=== PATIENT | female | born 1940 | race Caucasian/White ===

== ENCOUNTER → 2017-04-03 | Outpatient (CLI) | payer OTHER ==
[~2017-04-03] MED LIST: ACID CONTROL150 M1 PO; ACTOS PO; ALAVERT10 MG PO; ALBUTEROL0.63 MG/3 INH; ALBUTEROL17 GM INH; ALPRAZOLAM PO; ASPIRIN PO; ASPIRIN81 M2 PO; ASPIRINEC PO; ATENOLOL PO; ATENOLOL50 MG PO; CATAPRES0.1 MG PO; CLARITIN10 M2 PO; CLONIDINE HCL0.1 MG PO; CO Q-10 100 MG1 EACH PO; COQ-1010 MG PO; CRESTOR5 MG PO; DARVOCET-N 1001 TAB PO; DELTASONE20 MG PO; DULOXETINE HCL60 MG PO; EFFIENT10 MG PO; FISH OIL 1,0001 CAP PO; GAS RELIEF125 M1 PO; GLUCOPHAGE XR500 MG PO; GLUCOTROL PO; HCTZ PO; HUMALOG MIX 75/10 ML SUBQ; HUMALOG100 U/M2 SUBQ; HUMALOG100 U/ML SUBQ; HYDROCODON-ACE1 EAC1 PO; HYDROCODON-ACE1 EAC5 PO; HYDROMET SYRUP480 ML PO; IMDUR PO; IRON PO; ISORDIL40 MG PO; K-DUR10 MEQ PO; KCL PO; LANTUS100 U/ML SUBQ; LANTUS100 UNITS/ SUBQ; LASIX PO; LEVAQUIN PO; LEVEMIR SQ; LEVEMIR100 UNITS/ SUBQ; LIPITOR PO; LISINOPRIL PO; MAG-OXIDE400 MG PO; MOBIC PO; MONTELUKAST SOD10 MG PO; MUCINEX DM1 TAB.SR . PO; MUCINEX PO; NEURONTIN300 MG PO; NEXIUM PO; NITROGYLCERIN SUBLINGUAL; NORCO 10-325 TA1 TAB PO; NORVASC PO; NOVOLOG100 U/ML SUBQ; PLAVIX PO; PROTONIX PO; SINGULAIR PO; VIT E PO; VITAMIN D 4001 UDTAB PO; XANAX0.5 M1 PO; ZANTAC150 M1 PO; ZANTAC150 MG PO; ZESTRIL40 MG PO; ZITHROMAX1 G/PKT PO; ZOLOFT PO; ZOLPIDEM TARTRAT5 MG PO
--- NOTE | ~2017-04-03 | CR169 ---
[facility]. [facility] A Service of [facility] & [facility] RADIOLOGY TEXT RESULTS PATIENT: JAMIR ALMANZAR LOCATION: 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 ROOM: STUDY DESCRIPTION: CR Knee 2 Views Lt Attending Physician: Jailyn Duarte A.P.R.N. Referring Physician: Jailyn Duarte A.P.R.N. Ordering Physician: Jailyn Duarte A.P.R.N. Primary Care Physician: Nina Galicia M.D. MEDICAL IMAGING REPORT This report is preliminary unless electronic signature is present. EXAM Left knee 2 views 04/03/2017. HISTORY Left knee pain status post fall, 04/03/2017; abrasion, anterior aspect of left knee. FINDINGS 2 views of the left knee demonstrate no fracture. There is mild degenerative narrowing of the medial and lateral compartments of the knee. The bones are normally mineralized. There is no joint effusion. IMPRESSION Very minimal degenerative change, left knee. No acute abnormality. Dictated by... Fabio Aly M.D. THIS IS AN ELECTRONICALLY VERIFIED REPORT Fabio Aly M.D. at 04/05/2017 7:27 AM Bryant TD: 04/04/2017 12:28 JOB #: [id number] MEDICAL IMAGING REPORT Page 1 of 1
--- NOTE | ~2017-04-03 | CR170 ---
[facility]. 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 Referring Physician: Jailyn Duarte A.P.R.N. Ordering Physician: Jailyn Duarte A.P.R.N. Primary Care Physician: Nina Galicia M.D. MEDICAL IMAGING REPORT This report is preliminary unless electronic signature is present. EXAM Right knee, 2 views, 04/03/2017. HISTORY Right knee pain status post fall, 04/03/2017. FINDINGS 2 views of the right knee demonstrate no fracture. There is degenerative narrowing of the medial and lateral compartments of the knee and the patellofemoral joint. Osteophytes extend off the lateral compartment of the knee and along the posterior aspect of the patella. There may be a small joint effusion. IMPRESSION Degenerative change about the right knee. No evidence of fracture. Dictated by... Fabio Aly M.D. THIS IS AN ELECTRONICALLY VERIFIED REPORT Fabio Aly M.D. at 04/05/2017 7:27 AM GREGORY/taniya TD: 04/04/2017 12:32 JOB #: [id number] MEDICAL IMAGING REPORT Page 1 of 1
--- NOTE | ~2017-04-03 | CR230 ---
[facility] A Service 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 Referring Physician: Jailyn Duarte A.P.R.N. Ordering Physician: Jailyn Duarte A.P.R.N. Primary Care Physician: Nina Galicia M.D. MEDICAL IMAGING REPORT This report is preliminary unless electronic signature is present. EXAM Right shoulder. HISTORY Chronic shoulder pain for 2 years, worse after falling this morning. TECHNIQUE 3 views of the shoulder were obtained. COMPARISON Compared with 02/18/2015. FINDINGS Hypertrophic degenerative changes are seen at the acromioclavicular joint. Osteophytes are also seen at the glenohumeral joint, and there is faint calcification of the distal supraspinatus tendon consistent with chronic calcific tendinitis. There is no evidence of fracture, subluxation, or dislocation. No acute bony abnormalities are seen. Interstitial markings are prominent in both lungs, most prominent in the right upper lung field. This is a new finding since a previous chest CT in 2016. It is incompletely imaged. IMPRESSION 1. 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 No acute bony abnormalities are seen. 2. New lung infiltrates in the upper lung herrera when compared to the previous examination, which was a chest CT in 2016. Dictated by... Wilfredo Summers M.D. [facility] A Service of [facility] RADIOLOGY TEXT RESULTS PATIENT: JAMIR ALMANZAR LOCATION: [facility] : 39 UNIT #: [id number] AGE: [address]: Jailyn Duarte SEX: F ORDER DR: THIS IS AN ELECTRONICALLY VERIFIED REPORT Wilfredo Summers M.D. at 04/06/2017 7:02 AM Matilde TD: 04/04/2017 19:13 JOB #: [id number] MEDICAL IMAGING REPORT Page 1 of 1
--- NOTE | ~2017-04-03 | CR142 ---
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 Referring Physician: Jailyn Duarte A.P.R.N. Ordering Physician: Jailyn Duarte A.P.R.N. Primary Care Physician: Nina Galicia M.D. MEDICAL IMAGING REPORT This report is preliminary unless electronic signature is present. EXAM Right hand, 3 views, 04/03/2017. HISTORY Right hand pain status post fall, 04/03/2017, with third finger edema. FINDINGS 3 views of the right hand demonstrate no fracture. There is degenerative change with narrowing of the interphalangeal joints and central erosions involving the second through fifth distal interphalangeal joints with abundant marginal osteophytes about the second through fifth distal interphalangeal joints and the fourth and fifth proximal interphalangeal joints, characteristic of osteoarthritis. Degenerative subchondral cyst formation involving the second through fifth distal interphalangeal joints. Minimal osteophytic spurring involving the scaphoid and the trapezium. Soft tissue swelling is seen about the phalanges, primarily the third phalanx, but no foreign body is seen. IMPRESSION Findings characteristic of osteoarthritis. No evidence of fracture. Dictated by... Fabio Aly M.D. THIS IS AN ELECTRONICALLY VERIFIED REPORT Fabio Aly M.D. at 04/05/2017 7:27 AM GREGORY/taniya TD: 04/04/2017 12:29 JOB #: [id number] [facility] A Service of [facility] RADIOLOGY TEXT RESULTS PATIENT: JAMIR ALMANZAR LOCATION: [facility] : 39 UNIT #: [id number] AGE: [address]: Jailyn Duarte SEX: F ORDER DR: MEDICAL IMAGING REPORT Page 1 of 1
--- NOTE | ~2017-04-03 | CR229 ---
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 Referring Physician: Jailyn Duarte A.P.R.N. Ordering Physician: Jailyn Duarte A.P.R.N. Primary Care Physician: Nina Galicia M.D. MEDICAL IMAGING REPORT This report is preliminary unless electronic signature is present. EXAM Left shoulder. HISTORY Chronic left shoulder pain for the past several years, worse after falling this morning. TECHNIQUE Three views of the left shoulder were obtained. FINDINGS Three views of the left shoulder show a chronic humeral neck fracture. There is a small osteochondral fragment in the inferior aspect of the shoulder joint. It is difficult to ascertain whether there are any acute fracture fragments given the deformity from the previous injury. If there is persistent clinical concern for an acute left proximal humeral fracture, further evaluation with CT is recommended. Also noted is soft tissue calcification of the supraspinatus tendon consistent with chronic calcific tendinitis and degenerative changes are seen at the shoulder joint. IMPRESSION Chronic humeral neck fracture. No definite acute fractures are seen but the deformity of the humeral neck could obscure a small acute fracture. See above. Dictated by... Wilfredo Summers M.D. THIS IS AN ELECTRONICALLY VERIFIED REPORT Wilfredo Summers M.D. at 04/06/2017 7:02 AM [facility] A Service of [facility] RADIOLOGY TEXT RESULTS PATIENT: JAMIR ALMANZAR LOCATION: [facility] : 39 UNIT #: [id number] AGE: [address]: Jailyn Duarte SEX: F ORDER DR: Alejandrina TD: 04/04/2017 19:26 JOB #: [id number] MEDICAL IMAGING REPORT Page 1 of 1
== END | disposition home or self-care (01) ==
LOC: SRAD 15:21
DX: M25.561 Pain in right knee (principal); M25.562 Pain in left knee; M25.511 Pain in right shoulder; M25.512 Pain in left shoulder; M79.641 Pain in right hand; M17.11 Unilateral primary osteoarthritis, right knee; M19.011 Primary osteoarthritis, right shoulder; M75.81 Other shoulder lesions, right shoulder; R91.8 Other nonspecific abnormal finding of lung field; S42.212D Unspecified displaced fracture of surgical neck of left humerus, subsequent encounter for fracture with routine healing
CPT/HCPCS: 73030; 73130; 73560